=== PATIENT | female | born 1960 | race Caucasian/White ===

== ENCOUNTER 2017-06-17 15:20 | Emergency (ER) | payer MEDICAID ==
[2017-06-17] MEDS: KETOROLAC 60 MG INJ IM (17:55)
[2017-06-17] MEDS: HYDROCODONE/APAP (5/325) TAB PO (17:55)
== END 2017-06-17 18:19 | disposition home or self-care (01) ==
LOC: FTE 15:20
DX: M10.9 Gout, unspecified (principal); I10 Essential (primary) hypertension
CPT/HCPCS: 96372; 99284-25

== ENCOUNTER 2018-09-07 04:12 | Emergency (ER) | payer MEDICAID ==
[2018-09-07 05:30] LABS: URINE PH (Dip) POC 5.5 (5.0-8.5)
[2018-09-07 05:30] LABS: URINE BLOOD (Dip) POC 2+ (NEGATIVE); URINE GLUCOSE (Dip) POC Negative (NEGATIVE); URINE KETONES (Dip) POC Negative (NEGATIVE); URINE LEUKOCYTE EST (Dip) POC Negative (NEGATIVE); URINE NITRITE (Dip) POC Negative (NEGATIVE); URINE TOTAL PROTEIN POC 1+ (NEGATIVE)
[2018-09-07] MEDS ORDERED: FAMOTIDINE 20 MG TAB PO (05:31)
[2018-09-07] MEDS ORDERED: ONDANSETRON INJ 8 MG in DEXTROSE 5% 50 ML IV (05:31)
[2018-09-07] MEDS ORDERED: ONDANSETRON 4 MG INJ (05:37)
[2018-09-07] MEDS: HYDROmorphONE 1 MG/ML SYG IV (05:38)
[2018-09-07] MEDS: SOD CHLORIDE 0.9% 500 ML IV (05:39)
[2018-09-07] MEDS: ONDANSETRON 4 MG INJ IV (05:39)
[2018-09-07 05:45] LABS: ADD MAN DIFF? NO
[2018-09-07 05:50] LABS: WHITE BLOOD COUNT 11.3 10^3/ul (4.8-10.8)
[2018-09-07 05:50] LABS: BASOPHILS % 0.4 % (0.0-2.0); EOSINOPHILS # 0.2 10^3/ul (0.0-0.5); EOSINOPHILS % 1.7 % (0.0-7.0); HEMATOCRIT 38.3 % (37.0-47.0); HEMOGLOBIN 12.5 g/dl (12.0-16.0); LYMPHOCYTES # 2.9 10^3/ul (0.8-2.9); MEAN CORPUSCULAR HEMOGLOBIN 29.9 pg (29.0-33.0); MEAN CORPUSCULAR HGB CONC 32.6 g/dl (32.0-37.0); MEAN CORPUSCULAR VOLUME 91.6 fl (82.0-101.0); MEAN PLATELET VOLUME 10.2 fl (7.4-10.4); MONOCYTE # 0.9 10^3/ul (0.3-0.9); MONOCYTES % 7.9 % (0.0-11.0); NEUTROPHIL # 7.2 10^3/ul (1.6-7.5); NEUTROPHILS % 63.5 % (39.0-77.0); PLATELET COUNT 291 10^3/UL (140-415); RED BLOOD COUNT 4.18 10^6/ul (4.20-5.40)
[2018-09-07 06:08] LABS: ALANINE AMINOTRANSFERASE 22 IU/L (13-69); ALBUMIN 4.2 g/dl (3.3-4.9); ALKALINE PHOSPHATASE 105 IU/L (42-121); ANION GAP 11 (5-13); ASPARTATE AMINO TRANSFERASE 21 IU/L (15-46); BILIRUBIN,INDIRECT 0.4 mg/dl (0-1.1); BILIRUBIN,TOTAL 0.4 mg/dl (0.2-1.3); BLOOD UREA NITROGEN 23 mg/dl (7-20); CALCIUM 9.6 mg/dl (8.4-10.2); CARBON DIOXIDE 23 mmol/L (21-31); CHLORIDE 107 mmol/L (97-110); Estimated GFR 39 mL/min (>60); GLUCOSE 145 mg/dl (70-220); LIPASE 127 U/L (23-300); POTASSIUM 4.2 mmol/L (3.5-5.1); SODIUM 141 mmol/L (135-144)
[2018-09-07 06:17] LABS: ADD UMIC YES; UR ASCORBIC ACID NEGATIVE (NEGATIVE); UR BACTERIA FEW /HPF (NONE SEEN); UR BILIRUBIN (Dip) NEGATIVE (NEGATIVE); UR BLOOD (Dip) 2+ mg/dL (NEGATIVE); UR CLARITY SLIGHTLY CLOUDY (CLEAR); UR COLOR YELLOW (YELLOW); UR GLUCOSE (Dip) NEGATIVE (NEGATIVE); UR KETONES (Dip) NEGATIVE (NEGATIVE); UR LEUKOCYTE ESTERASE (Dip) NEGATIVE Leu/ul (NEGATIVE); UR NITRITE (Dip) NEGATIVE (NEGATIVE); UR RBC 2 /HPF (0-5); UR SPECIFIC GRAVITY (Dip) 1.012 (1.003-1.030); UR SQUAMOUS EPITHELIAL CELL FEW /HPF (FEW); UR TOTAL PROTEIN (Dip) 1+ mg/dl (NEGATIVE); UR UROBILINOGEN (Dip) NEGATIVE (NEGATIVE); UR WBC 1 /HPF (0-5)
[2018-09-07] MEDS: BELLADONNA/PHENOBARBITAL TAB PO (06:18)
[2018-09-07] MEDS: LIDOCAINE/MYLANTA 40 ML BTL PO (06:18)
[2018-09-07] MEDS: FAMOTIDINE 20 MG INJ IV (06:19)
[2018-09-07] MEDS: FENTAnyl 50 MCG/ML VIAL IV (09:45)
== END 2018-09-07 11:42 | disposition home or self-care (01) ==
LOC: E/R 04:12
DX: K80.20 Calculus of gallbladder without cholecystitis without obstruction (principal); N18.9 Chronic kidney disease, unspecified; R07.9 Chest pain, unspecified; I12.9 Hypertensive chronic kidney disease with stage 1 through stage 4 chronic kidney disease, or unspecified chronic kidney disease; K80.50 Calculus of bile duct without cholangitis or cholecystitis without obstruction
CPT/HCPCS: 36415; 71045; 76705; 80053; 81001; 81003; 83690; 85025; 96374; 96375; 99285-25

== ENCOUNTER 2018-11-26 15:08 | Emergency (ER) | payer MEDICAID | END 2018-11-26 16:06 | disposition home or self-care (01) | LOC: FTE 15:08 | DX: M10.9 Gout, unspecified (principal); N18.9 Chronic kidney disease, unspecified; I12.9 Hypertensive chronic kidney disease with stage 1 through stage 4 chronic kidney disease, or unspecified chronic kidney disease; Z79.82 Long term (current) use of aspirin | CPT/HCPCS: 99283; Z7502 ==